=== PATIENT | female | born 1965 | race Caucasian/White ===

== ENCOUNTER 2023-06-06 08:09 | Day surgery (SDC) | payer OTHER ==
[~2023-06-06] VITALS: Ht 160 cm; Wt 68.0 kg
[2023-06-06] MEDS ORDERED: fentaNYL citrate 0.05 MG/ML VIAL ONE (09:04)
[2023-06-06] MEDS ORDERED: MIDAZOLAM 5 MG/5 ML VIAL ONE (09:04)
[2023-06-06] MEDS ORDERED: fentaNYL citrate 0.05 MG/ML VIAL IVP ONE (10:55)
[2023-06-06] MEDS ORDERED: MIDAZOLAM 2 MG/2 ML VIAL IVP ONE (10:55)
== END 2023-06-06 10:06 | disposition home or self-care (01) ==
LOC: MDS 08:09 → MMU 08:11 → MDS 10:06
PROVIDERS: ATTEND Internal Medicine Gastroenterology
DX: Z09 Encounter for follow-up examination after completed treatment for conditions other than malignant neoplasm (principal); K51.218 Ulcerative (chronic) proctitis with other complication; Z86.010 Personal history of colon polyps; Z80.0 Family history of malignant neoplasm of digestive organs; Z96.652 Presence of left artificial knee joint; Z98.82 Breast implant status; Z98.890 Other specified postprocedural states; Z79.82 Long term (current) use of aspirin; Z79.899 Other long term (current) drug therapy
CPT/HCPCS: 45380; J2250; J3010